=== PATIENT | female | born 1960 | race Caucasian/White ===

== ENCOUNTER → 2017-04-04 | Outpatient (CLI) | payer OTHER | LOC: FIMAGING 12:24 | DX: Z12.31 Encounter for screening mammogram for malignant neoplasm of breast (principal); Z80.3 Family history of malignant neoplasm of breast | CPT/HCPCS: G0202 ==

== ENCOUNTER → 2017-06-12 | Outpatient (CLI) | payer OTHER | LOC: BMCIMAGING 14:58 | PROVIDERS: ATTEND Nurse Practitioner Adult Health | DX: K59.00 Constipation, unspecified (principal) ==

== ENCOUNTER → 2017-06-18 | Outpatient (CLI) | payer OTHER | LOC: BMCIMAGING 12:01 | PROVIDERS: ATTEND Internal Medicine Rheumatology | DX: M85.841 Other specified disorders of bone density and structure, right hand (principal); M85.842 Other specified disorders of bone density and structure, left hand; M85.88 Other specified disorders of bone density and structure, other site; M51.36 Other intervertebral disc degeneration, lumbar region; M41.86 Other forms of scoliosis, lumbar region ==

== ENCOUNTER → 2017-09-01 | Day surgery (SDC) | payer OTHER | END | disposition home or self-care (01) | LOC: FIMAGING 15:24 | PROVIDERS: ATTEND Radiology Diagnostic Radiology | PROC: 02HV33Z Insertion of Infusion Device into Superior Vena Cava, Percutaneous Approach (ICD-10-PCS; principal; 2017-09-01) | DX: M00.842 Arthritis due to other bacteria, left hand (principal); Z79.2 Long term (current) use of antibiotics; M41.84 Other forms of scoliosis, thoracic region | CPT/HCPCS: 36569; 77001; C1751 ==

== ENCOUNTER 2018-01-02 21:47 | Emergency (ER) | payer OTHER ==
--- NOTE | 2018-01-02 21:59 | EDPHY ---
H & P Stated Complaint: Chest pain and throat pain since earlier today Time Seen by Provider: 01/02/18 22:16 HPI/ROS: HPI: Chief Complaint: Location: Quality: Duration: Signs and Symptoms: no shortness of breath at rest, no shortness of breath on exertion, no cough, no chest pain, no palpitations, no lower extremity edema, no wheezing, no orthopnea, no paroxysmal nocturnal dyspnea, no fever, no injury/ trauma, no hemoptysis Timing: Severity: Context: Patient has a history of atypical chest pain in 2009 with a negative left heart catheterization by Dr. Russ. Symptoms were presumed to be from GERD and grief with her 's mother passing away. She was very close store and symptoms started as she was organized for the and worsened while she was at the . In 2012 or 2013 patient had 2 episodes of SVT, that was controlled chemically by Cardizem which she is still currently taking. Due to patient's chronic back problems cardiology decided not to proceed with ablation. She was given nitroglycerin sublingual tablets after her SVT episodes patient does not think to use this medication today as this throat pain and chest pain were completely different than her other cardiac episodes. 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 Denies feeling short of breath/ having palpitations/fever/cough/diaphoresis. She reports that she cardiac awareness and a little bit of anxiety so she sat down in the chair in the waiting room. Symptoms lasted approximately 8-10 minutes and self resolved. Today she only ate an apple for breakfast and lunch. Denies having any indigestion/abdominal pain/nausea, vomiting, diarrhea. Patient continued with her appointment went home for the evening. She was talking to her this evening it was decided that she come to the emergency room to be further evaluated due to her prior cardiac history and onset of the generalized dull aching headache. She is not take aspirin daily. She has a strong family history. Nonsmoker. Postmenopausal. She did take a trip to [place]. Denies any lower extremity edema/shortness of breath. Modifying Factors: None Comment: ROS: see HPI Constitutional: No fever, no chills, no weight loss Eyes: No blurred vision Respiratory: No shortness of breath, no cough Cardiovascular: + chest pain, no palpitations, no lower extremity edema Gastrointestinal: No nausea, no vomiting, no diarrhea Genitourinary: No dysuria Extremities: No myalgias Neurologic: No weakness, no numbness Skin: No rashes Hematologic: No bruising, no bleeding MEDICAL/SURGICAL/SOCIAL HISTORY: Medical/Surgical history: TETHERED SPINAL CORD, "CARDIAC EPISODE" 2009, SVT, APPY, GERD, ABD SURG, BACK SURG X7 Social history: CONSTITUTIONAL: Anxious nontoxic appearance adult white female, awake and alert , no obvious distress HEENT: Atraumatic and normocephalic, PERRL, EOMI. Tympanic membranes clear. Oropharynx clear, no exudate and moist pink mucosa. Airway patent. No lymphadenopathy. No meningismus. Cardiovascular: Normal S1/S2, regular rate, regular rhythm, without murmur rub or gallop. PULMONARY/CHEST: Symmetrical and nontender. Clear to auscultation bilaterally. Good air movement. No accessory muscle usage. ABDOMEN: Soft, nondistended, nontender, no rebound, no guarding, no peritoneal signs, no masses or organomegaly. No CVAT. EXTREMITIES: 2/2 pulses, right lower extremity strength decreased, right leg brace noted; no deformities, no clubbing, no cyanosis or edema. NEUROLOGICAL: no focal neuro deficits. GCS 15. SKIN: Warm and dry, no erythema. no rash. Good capillary refill. Source: Patient, Family () Exam Limitations: No limitations - Personal History Current Tetanus/Diphtheria Vaccine: Yes Current Tetanus Diphtheria and Acellular Pertussis (TDAP): Yes Tetanus Vaccine Date: <10 YRS - Medical/Surgical History Hx Asthma: No Hx Chronic Respiratory Disease: No Hx Diabetes: No Hx Cardiac Disease: Yes Hx Renal Disease: No Hx Cirrhosis: No Hx Alcoholism: No Hx HIV/AIDS: No Hx Splenectomy or Spleen Trauma: No Other PMH: TETHERED SPINAL CORD, "CARDIAC EPISODE" 2009, APPY, GERD, ABD SURG, BACK SURG X7 - Social History Smoking Status: Never smoked Constitutional: Initial Vital Signs Temperature (C) 36.8 C 01/02/18 21:54 Heart Rate 70 01/02/18 21:54 Respiratory Rate 16 01/02/18 21:54 Blood Pressure 165/105 H 01/02/18 21:54 O2 Sat (%) 95 01/02/18 21:54 O2 Delivery Mode Room Air Allergies/Adverse Reactions: iodine [Iodine] Allergy (Severe, Verified 01/02/18 21:56) THROAT CLOSING Penicillins Allergy (Unknown, Verified 01/02/18 21:56) FROM CHILDHOOD cortisone [Cortisone] Allergy (Verified 01/02/18 21:56) Home Medications: Medication Instructions Recorded DILTIAZEM HCL [Cartia XT 120mg] 120 mg PO HS 05/23/12 Zolpidem Tartrate [Ambien 10 mg] 10 mg PO HS 05/23/12 *Pharmacist Completed 01/02/13 01/02/13 Ascorbic Acid [Vitamin C 500 mg 1,000 mg PO BID 01/02/13 (OTC)] Butenafine HCl [Lotrimin Ultra] 1 denia TP BID 01/02/13 Gabapentin [Neurontin 300 MG (RX)] 300 mg PO QID 01/02/13 Herbals/Supplements -Info Only 1 each PO AD 01/02/13 Methenamine Mandelate [METHENAMINE 1 gm PO BIDMEAL 01/02/13 MANDELATE] Nabumetone [RELAFEN 750MG (RX)] 750 mg PO DAILY 01/02/13 Psyllium Husk/Ca Carbonate 2 each PO BID 01/02/13 [Metamucil Plus Calcium Capsule] Pantoprazole Sodium [Protonix] 40 mg PO DAILY #10 tablet. 01/03/18 Medical Decision Making - Diagnostics Imaging Results: Imaging Impressions Chest X-Ray 01/02/18 22:15 Impression: Negative for acute abnormality.. ED Course/Re-evaluation: EKG, chest x-ray, labs, IV fluids, oral medication, IV medications ordered suspect patient's chest pain is related to GERD Vital signs reviewed and during interview patient's systolic blood pressure increased from 160-180 EKG shows no acute ischemic changes/arrhythmia Patient given aspirin IV Ativan RENNY risk factor index and HEART score is low Chest x-ray my read shows no opacity, no effusion, no widened cardio mediastinum , no free air, no pneumothorax; + moderate hiatal hernia 1125: Reassessed patient who still remains chest pain-free. Labs reviewed and show no signs of a ACS/pulmonary embolism/anemia/acute kidney injury/ transaminitis/CHF/coagulopathy Will obtain 2nd troponin at 0100 and if unremarkable discharge home with Cardiology follow-up outpatient. 0130: Troponin x2 within normal limits; acute ischemic changes. Patient has not had chest pain now for over 12 hr. Patient safe to be discharged home; follow-up with Cardiology outpatient This patient was seen under the supervision of my secondary supervising physician. I evaluated care for this patient independently. Discussed this patient with Dr. Juarez who did not see the patient. Differential Diagnosis: Chest pain including but not limited to myocardial ischemia, pulmonary embolus, chest wall pain, pleural inflammation and pulmonary infectious causes. - Data Points Laboratory Results: Laboratory Results 01/02/18 22:00 01/02/18 22:00 01/03/18 01/02/18 01/02/18 00:59 22:00 22:00 WBC RBC Hgb Hct MCV MCH MCHC RDW Plt Count MPV Neut % (Auto) Lymph % (Auto) [place] % (Auto) Eos % (Auto) Baso % (Auto) Nucleat RBC Rel Count Absolute Neuts (auto) Absolute Lymphs (auto) Absolute Monos (auto) Absolute Eos (auto) Absolute Basos (auto) Absolute Nucleated RBC Immature Gran % Immature Gran # PT 12.4 SEC SEC (12.0-15.0) INR 0.90 (0.83-1.16) APTT 29.0 SEC SEC (23.0-38.0) D-Dimer 0.27 ug/mLFEU ug/mLFEU (0.00-0.50) Sodium 142 mEq/L mEq/L (135-145) Potassium 3.8 mEq/L mEq/L (3.5-5.2) Chloride 102 mEq/L mEq/L (97-110) Carbon Dioxide 26 mEq/l mEq/l (22-31) Anion Gap 14 mEq/L mEq/L (8-16) BUN 13 mg/dL mg/dL (7-23) Creatinine 0.8 mg/dL mg/dL (0.6-1.0) Estimated GFR > 60 Glucose 90 mg/dL mg/dL (70-100) Calcium 9.6 mg/dL mg/dL (8.5-10.4) Total Bilirubin 0.4 mg/dL mg/dL (0.1-1.4) Conjugated Bilirubin 0.3 mg/dL mg/dL (0.0-0.5) Unconjugated Bilirubin 0.1 mg/dL mg/dL (0.0-1.1) AST 27 IU/L IU/L (14-46) ALT 22 IU/L IU/L (9-52) Alkaline Phosphatase 129 IU/L H IU/L (38-126) Troponin I < 0.012 ng/mL ng/mL < 0.012 ng/mL ng/mL (0.000-0.034) (0.000-0.034) NT-Pro-B Natriuret Pep 50 pg/mL pg/mL (0-125) Total Protein 7.0 g/dL g/dL (6.3-8.2) Albumin 4.3 g/dL g/dL (3.5-5.0) Lipase 92 IU/L IU/L (23-300) 01/02/18 22:00 WBC 6.28 10^3/uL 10^3/uL (3.80-9.50) RBC 4.77 10^6/uL 10^6/uL (4.18-5.33) Hgb 14.9 g/dL g/dL (12.6-16.3) Hct 43.3 % % (38.0-47.0) MCV 90.8 fL fL (81.5-99.8) MCH 31.2 pg pg (27.9-34.1) MCHC 34.4 g/dL g/dL (32.4-36.7) RDW 14.0 % % (11.5-15.2) Plt Count 243 10^3/uL 10^3/uL (150-400) MPV 10.0 fL fL (8.7-11.7) Neut % (Auto) 52.6 % % (39.3-74.2) Lymph % (Auto) 36.5 % % (15.0-45.0) [place] % (Auto) 7.5 % % (4.5-13.0) Eos % (Auto) 2.4 % % (0.6-7.6) Baso % (Auto) 0.8 % % (0.3-1.7) Nucleat RBC Rel Count 0.0 % % (0.0-0.2) Absolute Neuts (auto) 3.31 10^3/uL 10^3/uL (1.70-6.50) Absolute Lymphs (auto) 2.29 10^3/uL 10^3/uL (1.00-3.00) Absolute Monos (auto) 0.47 10^3/uL 10^3/uL (0.30-0.80) Absolute Eos (auto) 0.15 10^3/uL 10^3/uL (0.03-0.40) Absolute Basos (auto) 0.05 10^3/uL 10^3/uL (0.02-0.10) Absolute Nucleated RBC 0.00 10^3/uL 10^3/uL (0-0.01) Immature Gran % 0.2 % % (0.0-1.1) Immature Gran # 0.01 10^3/uL 10^3/uL (0.00-0.10) PT INR APTT D-Dimer Sodium Potassium Chloride Carbon Dioxide Anion Gap BUN Creatinine Estimated GFR Glucose Calcium Total Bilirubin Conjugated Bilirubin Unconjugated Bilirubin AST ALT Alkaline Phosphatase Troponin I NT-Pro-B Natriuret Pep Total Protein Albumin Lipase Medications Given: Discontinued Medications Aspirin (Aspirin) 324 mg PO EDNOW ONE Stop: 01/02/18 22:16 Last Admin: 01/02/18 22:32 Dose: 324 mg Sodium Chloride (Ns) 1,000 mls @ 0 mls/hr IV EDNOW ONE; Wide Open PRN Reason: Protocol Stop: 01/02/18 22:16 Last Admin: 01/02/18 22:33 Dose: 1,000 mls Lorazepam (Ativan Injection) 0.5 mg IVP EDNOW ONE Stop: 01/02/18 22:16 Last Admin: 01/02/18 22:33 Dose: 0.5 mg Departure - Departure Disposition: Home, Routine, Self-Care Clinical Impression: Atypical chest pain, Hiatal hernia with GERD and esophagitis Condition: Good Instructions: Hiatal Hernia (ED), Gastroesophageal Reflux Disease (ED), Noncardiac Chest Pain (ED) Additional Instructions: Please rest this weekend. Start taking Protonix daily for GERD. Follow GERD diet. Call Cardiology on Friday for follow-up next week. If at any time you have worsening chest pain, shortness of breath, diaphoresis; return to the emergency room immediately. Referrals: Lana Hanna NP [Primary Care Provider] - As per Instructions Joel Russ MD [Medical Doctor] - As per Instructions Prescriptions: Pantoprazole Sodium [Protonix] 40 mg PO DAILY #10 tablet.
--- NOTE | 2018-01-02 22:03 | CPEKG ---
Heart Rate: 69 RR Interval: 870 P-R Interval: 156 QRSD Interval: 100 QT Interval: 388 QTC Interval: 416 P [place]: 63 QRS [place]: 6 T Wave [place]: 49 EKG Severity - BORDERLINE ECG - EKG Impression: SINUS RHYTHM EKG Impression: PROBABLE LEFT ATRIAL ABNORMALITY Electronically Signed By: Yani Garnett 07-Jan-2018 09:08:08
[2018-01-02] MEDS ORDERED: ASPIRIN 81 MG CHEWABLE TAB PO ONE (22:15)
[2018-01-02] MEDS ORDERED: LORazepam 2 MG/ML INJ IVP ONE (22:15)
[2018-01-02] MEDS ORDERED: NS 1,000 ML IV ONE (22:15)
[2018-01-02 22:20] LABS: PLATELET COUNT 243 10^3/uL (150-400)
[2018-01-02 22:29] LABS: INR 0.9 (0.83-1.16); PROTIME(PATIENT) 12.4 SEC (12.0-15.0)
[2018-01-02 23:42] VITALS: RESP 18
[2018-01-03 01:56] VITALS: BP 134/78; PULSE 65; TEMP 98.1; O2SAT 95
== END 2018-01-03 01:57 | disposition home or self-care (01) ==
DX: R07.89 Other chest pain (principal); K44.9 Diaphragmatic hernia without obstruction or gangrene; K21.0 Gastro-esophageal reflux disease with esophagitis; E86.9 Volume depletion, unspecified
CPT/HCPCS: 96374; J2060

== ENCOUNTER → 2018-02-18 | Outpatient (CLI) | payer OTHER | LOC: FCPNEURO 20:00 | PROVIDERS: ATTEND Internal Medicine Sleep Medicine | DX: G47.33 Obstructive sleep apnea (adult) (pediatric) (principal); G47.36 Sleep related hypoventilation in conditions classified elsewhere; G47.61 Periodic limb movement disorder ==

== ENCOUNTER → 2018-04-10 | Outpatient (CLI) | payer OTHER | LOC: FIMAGING 15:54 | DX: Z12.31 Encounter for screening mammogram for malignant neoplasm of breast (principal); Z80.3 Family history of malignant neoplasm of breast ==

== ENCOUNTER → 2019-04-08 | Outpatient (CLI) | payer OTHER | LOC: BMCIMAGING 13:24 | PROVIDERS: ATTEND Podiatrist Foot & Ankle Surgery | DX: M79.671 Pain in right foot (principal) ==

== ENCOUNTER → 2019-04-09 | Outpatient (CLI) | payer OTHER | LOC: BMCIMAGING 11:13 | PROVIDERS: ATTEND Internal Medicine Rheumatology | DX: Z13.820 Encounter for screening for osteoporosis (principal); M81.0 Age-related osteoporosis without current pathological fracture; Z78.0 Asymptomatic menopausal state ==

== ENCOUNTER → 2019-04-16 | Outpatient (CLI) | payer OTHER | LOC: FIMAGING 15:11 | PROVIDERS: ATTEND Nurse Practitioner Adult Health | DX: Z12.31 Encounter for screening mammogram for malignant neoplasm of breast (principal); Z98.82 Breast implant status; Z80.3 Family history of malignant neoplasm of breast ==

== ENCOUNTER → 2019-05-27 | Outpatient (CLI) | payer OTHER | LOC: BMCIMAGING 14:12 ==